=== PATIENT | female | born 1950 | race Hispanic/Latino ===

== ENCOUNTER 2019-02-16 21:34 | Inpatient (IN) | payer MEDICARE, OTHER | END 2019-02-23 18:49 | disposition skilled nursing facility (03) | LOC: 2RNO 02-20 13:34 → ERH 02-17 02:00 → 3RSO 02-22 14:40 → ERH 02-17 02:30 → 3RSO 02-22 14:46 → ED 21:34 → CCU 02-17 02:54 ==